=== PATIENT | female | born 1960 | race Caucasian/White ===

== ENCOUNTER 2017-01-01 08:55 | Emergency (ER) | payer BC ==
[2017-01-01 09:10] VITALS: BP 142/97
[2017-01-01] MEDS ORDERED: Phenazopyridine 100 MG Tab ONE (09:30)
[2017-01-01] MEDS ORDERED: Ciprofloxacin 500 MG Tab ONE (09:30)
--- NOTE | 2017-01-01 14:32 | EDM.PDOC ---
ED HPI GENERAL MEDICAL PROBLEM - General Chief Complaint: General Stated Complaint: possible UTI Time Seen by Provider: 01/01/17 09:15 Source of Information: Reports: Patient History Limitations: Reports: No Limitations - History of Present Illness INITIAL COMMENTS - FREE TEXT/NARRATIVE: This is a 56yo F with UTI symptoms that she has had in the past. Patient states her last UTI was 5-6 yrs ago and she is having a recurrence of those symptoms. Denies any fever or chills today but states she felt chills 1-2 days ago and it has resolved. Denies other symptoms other than dysuria and frequency with odor. Onset: Gradual Duration: Day(s): Quality: Reports: Burning Severity: Mild Treatments [employer]: Reports: Acetaminophen - Related Data Allergies Allergy/AdvReac Type Severity Reaction Status Date / Time No Known Allergies Allergy Verified 01/01/17 09:10 Home Meds: Home Meds Anastrozole [Anastrozole] 1 mg PO DAILY 01/01/17 [History] Calcium Carbonate [Calcium] 500 mg PO DAILY 01/01/17 [History] Cholecalciferol (Vitamin D3) [Vitamin D] 2,000 unit PO DAILY 01/01/17 [History] FLUoxetine HCl [Fluoxetine HCl] 20 mg PO DAILY 01/01/17 [History] Hydrochlorothiazide 25 mg PO DAILY 01/01/17 [History] Simvastatin [Simvastatin] 20 mg PO DAILY 01/01/17 [History] ED ROS GENERAL - Review of Systems Review Of Systems: ROS reveals no pertinent complaints other than HPI. ED EXAM, GENERAL - Physical Exam Exam: See Below Exam Limited By: No Limitations General Appearance: Alert, WD/WN, No Apparent Distress Head: Atraumatic, Normocephalic Neck: Normal Inspection Respiratory/Chest: No Respiratory Distress Cardiovascular: Normal Peripheral Pulses GI/Abdominal: Normal Bowel Sounds, Non-Tender Course - Vital Signs Last Recorded V/S: Last Vital Signs Temp 37.2 C 01/01/17 09:06 Pulse 82 01/01/17 09:06 Resp BP 142/97 H 01/01/17 09:06 Pulse Ox 96 01/01/17 09:06 - Orders/Labs/Meds Orders: Active Orders 24 hr Category Date Time Status CULTURE URINE [RM] Stat Lab 01/01/17 09:23 Received Labs: Laboratory Tests 01/01/17 Range/Units 09:12 Urine Color Yellow Urine Appearance Slightly cloudy (CLEAR) Urine pH 7.0 (5.0-8.0) Ur Specific [place] 1.010 (1.003-1.030) Urine Protein 100 H (NEGATIVE) mg/dL Urine Glucose (UA) Negative (NEGATIVE) mg/dL Urine Ketones Negative (NEGATIVE) mg/dL Urine Occult Blood Large H (NEGATIVE) Urine Nitrite Negative (NEGATIVE) Urine Bilirubin Negative (NEGATIVE) Urine Urobilinogen 0.2 (0.2-1.0) E.U./dL Ur Leukocyte Esterase Large H (NEGATIVE) Urine RBC 10-20 H /HPF Urine WBC Semi-packed H /HPF Urine WBC Clumps Few /HPF Ur Squamous Epith Cells Few /HPF Urine Bacteria Few /HPF Departure - Departure Time of Disposition: 10:00 Disposition: Home, Self-Care 01 Condition: Good Clinical Impression: UTI (urinary tract infection) Qualifiers: Urinary tract infection type: acute cystitis Hematuria presence: with hematuria Qualified Code(s): N30.01 - Acute cystitis with hematuria - Discharge Information Instructions: Urinary Tract Infection, Adult Referrals: Steffany Ross NP [Primary Care Provider] - Forms: ED Department Discharge Additional Instructions: Drink plenty of fluids and rest. Take the antibiotic every day until completely gone. If you have further questions or concerns feel free to call or return to the emergency department. Continue monitoring and f/u if any concerns or symptoms. - My Orders Last 24 Hours: My Active Orders 01/01/17 09:23 CULTURE URINE [RM] Stat - Assessment/Plan Last 24 Hours: My Active Orders 01/01/17 09:23 CULTURE URINE [RM] Stat
== END 2017-01-01 09:35 | disposition home or self-care (01) ==
LOC: LB.ED 08:55
DX: N30.01 Acute cystitis with hematuria (principal); Z79.899 Other long term (current) drug therapy
CPT/HCPCS: 81001; 87086; 99283; A9270